=== PATIENT | male | born 1990 | race Caucasian/White ===

== ENCOUNTER 2021-02-04 17:00 | Emergency (ER) | payer OTHER ==
[~2021-02-04] VITALS: Ht 182.9 cm; Wt 108.9 kg
[2021-02-04 17:09] VITALS: BP 116/73
--- NOTE | 2021-02-04 17:16 | NUR ---
DR.KOWN JACOBS EVALUATING PT Addendum: 02/04/21 at [address] [email or web address]KWON JACOBS
[2021-02-04] MEDS ORDERED: LORazepam 1 MG TAB PO ONE (17:25)
[2021-02-04] MEDS ORDERED: NACL 0.9% 1,000 ML IV ONE ×2 (17:25→21:00)
[2021-02-04] MEDS ORDERED: LORazepam 2 MG/ML VIAL IVP ONE (17:30)
--- NOTE | 2021-02-04 17:35 | NUR ---
PER ERMD 12 LEAD WAS DONE ON PT AND CAME BACK A-FIB AT 110 HR.
--- NOTE | 2021-02-04 17:37 | NUR ---
UPON ASSESSMENT PT CONTUINED TO ASK "ARE YOU EATING MY BRAINS OUT?" PT REORIENTATED
--- NOTE | 2021-02-04 17:37 | NUR ---
30 Y/O MALE BIB MOTHER C/O METH USE X3DAYS. PT STATING "I BOUGHT SOME CRYSTAL FROM SOME [employer] AND NOW I CAN FEEL MY INTESTINES BLEEDING". PT STATES HE HAS A HEADACHE 4/10 STATES, "IS MY BRAIN GETTING ENOUGH OXYGEN?". PT REORIENTED, DENIES FEVER/CHILLS, DENIES N/V. BREATH SOUNDS CLEAR BILATERALLY, S1/S2 HEARD, CAP REFILL <2 SECONDS, PERRL NOTED, BUT PUPILS DILATED TO ABOUT 6MM. PT SKIN INTACT, BUT PT DIAPHORETIC. DENIES PMH NKA
--- NOTE | 2021-02-04 18:37 | NUR ---
PT CURRENTLY MORE ALERT AND ORIENTATED AT THIS TIME. PATIENT CURRENTLY A&OX2 AT THIS TIME. PT CONTINUES TO STATE "THANK YOU FOR HELPING ME"
--- NOTE | 2021-02-04 19:29 | NUR ---
GAVE REPORT TO TRAVEL OCHOA RN. TRANSFER OF CARE AT THIS TIME.
--- NOTE | 2021-02-04 22:16 | NUR ---
PATIENT CLEARED FOR DISCHARGE AT THIS TIME. PATIENT ADVISED TO CONTACT PCP AND RETURN IF CONDITIONS WORSEN. NO FURTHER QUESTIONS FOLLOWING DISCHARGE TEACHING,
[2021-02-04 22:17] VITALS: BP 134/77
== END 2021-02-04 22:16 | disposition home or self-care (01) ==
LOC: MED 17:00
DX: R00.2 Palpitations (principal); F15.10 Other stimulant abuse, uncomplicated
CPT/HCPCS: 93005; 96361; 96374; 99283; J2060; J7030

== ENCOUNTER 2023-10-28 22:00 | Emergency (ER) | payer OTHER ==
[~2023-10-28] VITALS: Ht 177.8 cm; Wt 89.8 kg
[2023-10-28 22:18] VITALS: BP 104/63; PULSE 107; RESP 20; TEMP 97.7; O2SAT 99
[2023-10-28] MEDS: ONDANSETRON 4 MG ODT PO ONE (23:02)
[2023-10-28] MEDS ORDERED: ONDA-188 SL (23:43)
[2023-10-28 23:57] VITALS: O2SAT 99
== END 2023-10-28 23:59 | disposition home or self-care (01) ==
LOC: MED 22:00
DX: R11.2 Nausea with vomiting, unspecified (principal); F31.9 Bipolar disorder, unspecified; Z79.899 Other long term (current) drug therapy
CPT/HCPCS: 99283; Q0162